=== PATIENT | female | born 1960 | race Caucasian/White ===

== ENCOUNTER 2021-02-21 07:09 | Day surgery (SDC) | payer MEDICARE ==
[~2021-02-21] VITALS: Ht 162.6 cm; Wt 82.1 kg
[~2021-02-21 07:09] MED LIST: CYMBALTA20 MG PO; ESOMEPRAZOLE MA40 MG PO; FOLIC ACID1 MG PO; GABAPENTIN100 MG PO; HYDROCODONE/ACE1 TAB PO; LEVOTHYROXIN100 MCG PO; MORPHINE SUL30 M3 PO; NAPROXEN250 MG PO; ROPINIROLE HCL0.5 MG PO; SEPTRA4001 PO; SIMVASTATIN20 MG PO
[2021-02-21 09:38] VITALS: BP 126/75
== END 2021-02-21 09:20 | disposition home or self-care (01) ==
LOC: ENDO 07:09 → ORM 09:15 → ENDO 09:15
PROVIDERS: ATTEND Surgery
PROC: 0DJD8ZZ Inspection of Lower Intestinal Tract, Via Natural or Artificial Opening Endoscopic (ICD-10-PCS; principal; 2021-02-21)
PROC: 0FPB8DZ Removal of Intraluminal Device from Hepatobiliary Duct, Via Natural or Artificial Opening Endoscopic (ICD-10-PCS; 2021-02-21)
DX: Z12.11 Encounter for screening for malignant neoplasm of colon (principal); K64.5 Perianal venous thrombosis; T85.848A Pain due to other internal prosthetic devices, implants and grafts, initial encounter; Y83.1 Surgical operation with implant of artificial internal device as the cause of abnormal reaction of the patient, or of later complication, without mention of misadventure at the time of the procedure; K29.80 Duodenitis without bleeding; K29.70 Gastritis, unspecified, without bleeding; K44.9 Diaphragmatic hernia without obstruction or gangrene; K43.2 Incisional hernia without obstruction or gangrene; F17.200 Nicotine dependence, unspecified, uncomplicated; Z80.0 Family history of malignant neoplasm of digestive organs
CPT/HCPCS: 43247; G0105

== ENCOUNTER 2021-03-16 10:41 | Day surgery (SDC) | payer MEDICARE ==
[~2021-03-16] VITALS: Ht 162.6 cm; Wt 70.3 kg
[2021-03-16 14:08] VITALS: BP 123/59
== END 2021-03-16 14:18 | disposition home or self-care (01) ==
LOC: ORM 10:41
PROVIDERS: ATTEND Surgery
PROC: 0WUF4JZ Supplement Abdominal Wall with Synthetic Substitute, Percutaneous Endoscopic Approach (ICD-10-PCS; principal; 2021-03-16)
DX: K43.2 Incisional hernia without obstruction or gangrene (principal)
CPT/HCPCS: J0131; J1100; J2710